=== PATIENT | male | born 2000 | race Caucasian/White ===

== ENCOUNTER 2018-12-03 21:56 | Emergency (ER) | payer MEDICAID, OTHER ==
--- NOTE | 2018-12-03 22:15 | ER Document Report ---
ED Neck/Back Problem - General Chief Complaint: Low Back Pain Stated Complaint: BACK PAIN Time Seen by Provider: 12/03/18 22:14 Primary Care Provider: FLY MEJIA PA [[employer]] - Follow up as needed Mode of Arrival: Stretcher Information source: Patient Notes: HISTORY OF PRESENT ILLNESS: Patient is a 18-year-old male with a past medical history of recent L5/S1 discectomy on September 21, 2018 (Dr. Tono Em at [facility]) who presents with acute onset back pain earlier yesterday. Patient reports that he stepped off a curb and as soon as he did he felt immediate pain, has been able to "crawl" to the bathroom and reports having normal urination and bowel movements today. Onset: 1 day ago Provocation: "Stepped off a curb," worse with bending or twisting Quality: Sharp "like lightning" Radiation: Down the left leg to the posterior calf Severity: "Severe" Timing: Constant REVIEW OF SYSTEMS: CONSTITUTIONAL : Denies fever or chills, no sweats. Denies recent illness. EENT: Denies eye, ear, throat, or mouth pain or symptoms. Denies nasal or sinus congestion. CARDIOVASCULAR: Denies chest pain. RESPIRATORY: Denies cough, cold, or chest congestion. Denies shortness of breath, difficulty breathing, or wheezing. GASTROINTESTINAL: Denies abdominal pain. Denies nausea, vomiting, or diarrhea. Denies constipation. GENITOURINARY: Denies difficulty urinating, painful urination, burning, frequency, or blood in urine. MUSCULOSKELETAL: Positive back pain, no joint pain or swelling. SKIN: Denies rash or skin lesions. HEMATOLOGIC : Denies easy bruising or bleeding. LYMPHATIC: Denies swollen, enlarged glands. NEUROLOGICAL: Denies altered mental status or loss of consciousness. Denies headache. Denies weakness or paralysis or loss of use of either side. Denies problems with gait or speech. Denies sensory or motor loss. PSYCHIATRIC: Denies anxiety or stress or depression. All other systems reviewed and negative. PHYSICAL EXAMINATION: GENERAL: Well-appearing, well-nourished and in mild acute distress due to pain. HEAD: Atraumatic, normocephalic. No scalp deformity, depression, or crepitance. EYES: Pupils are 3 mm and equal/round/reactive to light, extraocular movements intact, sclera anicteric, conjunctiva are normal. ENT: Nares patent bilaterally, oropharynx clear without exudates or palatal petechia. Moist mucous membranes. No tonsil hypertrophy. NECK: Normal range of motion, supple without lymphadenopathy. LUNGS: Breath sounds present, equal, and clear to auscultation bilaterally. No wheezes, rales, or rhonchi. HEART: Regular rate and rhythm without murmurs, rubs, or gallops. 2+ peripheral pulses. Normal capillary refill. ABDOMEN: Soft, nontender, nondistended. Normoactive bowel sounds. No guarding, no rebound. No masses appreciated. BACK: No step-off or deformity. Surgical incision scar in the lower lumbar spine that is nontender. EXTREMITIES: Normal range of motion, no pitting or edema. No cyanosis. NEUROLOGICAL: No focal neurological deficits. Moves all extremities spontaneously and on command. PSYCH: Normal mood, normal affect. No suicidal thoughts/ideations. No homocidal thoughts/ideations. No hallucinations. SKIN: Warm, dry, normal turgor, no rashes or lesions noted. ASSESSMENT AND PLAN: This patient is a 18-year-old male who presents with acute onset lower back pain after stepping off a curb in the setting of being 2 weeks status post L5/S1 discectomy. Concern for acute traumatic sciatica versus nerve impingement versus postoperative adhesions. 1. Will obtain CT scan of the lumbar spine. 2. Will give IV morphine for pain control and reassess. 3. If CT scan shows acute nerve impingement, patient will likely necessitate transferring back to [facility]. TRAVEL OUTSIDE OF THE [place] IN LAST 30 DAYS: No - HPI Similar symptoms previously: No Recently seen / treated by doctor: No Past Medical History - General Information source: Patient - Social History Smoking Status: Never Smoker Chew tobacco use (# tins/day): No Frequency of alcohol use: None Drug Abuse: None Lives with: Friend Family History: Reviewed & Not Pertinent Patient has suicidal ideation: No Patient has homicidal ideation: No - Past Medical History Cardiac Medical History: Reports: None Pulmonary Medical History: Reports: None EENT Medical History: Reports: None Neurological Medical History: Reports: None Endocrine Medical History: Reports: None Renal/ Medical History: Reports: None Malignancy Medical History: Reports None GI Medical History: Reports: None Musculoskeletal Medical History: Reports None Skin Medical History: Reports None Psychiatric Medical History: Reports: None Traumatic Medical History: Reports: None Infectious Medical History: Reports: None Past Surgical History: Reports: Other - History of spinal surgery - Immunizations Immunizations up to date: Yes Hx Diphtheria, Pertussis, Tetanus Vaccination: Yes Physical Exam - Vital signs Vitals: Temp Pulse Resp BP Pulse Ox 98.4 F 98 20 120/57 L 99 12/03/18 21:56 12/03/18 21:56 12/03/18 21:56 12/03/18 21:56 12/03/18 21:56 Course - Re-evaluation Re-evalutation: 12/04/18 00:33 CT scan is negative for acute thoracic or lumbar injuries. Patient has been a ble to move around in the bed including moving his legs back and forward without difficulties. He will be discharged home with return precautions and follow-up with his surgeon as already scheduled. Patient voices understanding and agreeing with the plan. - Vital Signs Vital signs: Temp Pulse Resp BP Pulse Ox 98.4 F 98 20 120/57 L 99 12/03/18 21:56 12/03/18 21:56 12/03/18 21:56 12/03/18 21:56 12/03/18 21:56 Discharge - Discharge Clinical Impression: Acute back pain Qualifiers: Back pain location: low back pain Back pain laterality: midline Sciatica presence: with sciatica Sciatica laterality: sciatica of left side Qualified Code(s): M54.42 - Lumbago with sciatica, left side Condition: Good Disposition: HOME, SELF-CARE Instructions: Low Back Pain ([facility]), Sciatica ([facility]) Additional Instructions: You have been evaluated in the Emergency Department for back pain and sciatica. Please follow-up with your primary physician as well as your surgeon as instructed in 1-2 weeks. Return to the Emergency Department if you experience numbness of your legs, the inability to urinate or have a bowel movement, the inability to walk, or any other concerning symptoms. Prescriptions: Diclofenac Sodium 75 mg PO BID #30 tablet. Tramadol HCl [Ultram 50 mg Tablet] 50 mg PO Q6H PRN #30 tab PRN Reason: Referrals: FLY MEJIA PA [[employer]YSIC[employer]] - Follow up as needed Print Language: Thai
[2018-12-03] MEDS ORDERED: MORPHINE SULFATE 10 MG/ML INJ IV ONE (22:27)
--- NOTE | 2018-12-03 23:34 | RADIOLOGY REPORT (SQ) ---
EXAM DESCRIPTION: CT LUMBAR SPINE WITHOUT IV CONTRAST COMPLETED DATE/TME: 12/03/2018 22:27 CLINICAL HISTORY: 18 years, Male, Back pain COMPARISON: EXAM DESCRIPTION: CLINICAL HISTORY: Back pain COMPARISON: None Available. TECHNIQUE: Contiguous axial images of lumbar spine were obtained followed by reconstruction images. All CT scanners at this facility use dose modulation, iterative reconstruction, and/or weight based dosing when appropriate to reduce radiation dose to as low as reasonably achievable (ALARA). FINDINGS: There is a left L5 pars defect. No spondylolisthesis or other spondylolysis. There is mild straightening of the normal lumbar lordosis. There is otherwise anatomic alignment of the lumbar spine. Vertebral body height is preserved without evidence of acute fracture. IMPRESSION: L5 spondylolysis. No acute abnormalities.
[2018-12-04 01:49] VITALS: BP 133/93
== END 2018-12-04 01:49 | disposition home or self-care (01) ==
LOC: ER 21:56
DX: M54.42 Lumbago with sciatica, left side (principal); Z98.890 Other specified postprocedural states
CPT/HCPCS: 99284; 96374; 72131; J2270

== ENCOUNTER → 2019-01-17 | Outpatient (CLI) | payer MEDICAID ==
--- NOTE | 2019-01-17 14:01 | RADIOLOGY REPORT (SQ) ---
EXAM DESCRIPTION: L SPINE W/FLEX/EXT COMPLETED DATE/TIME: 01/17/2019 11:56 am REASON FOR STUDY: LUMBAR RADICULOPATHY (M54.16) M54.16 RADICULOPATHY, LUMBAR REGION COMPARISON: None. NUMBER OF VIEWS: 7 views TECHNIQUE: AP, lateral, coned-down lateral, and oblique views of the lumbar spine were obtained. Th e lateral views were done in neutral, flexion, and extension. LIMITATIONS: None. FINDINGS: MINERALIZATION: Normal. SEGMENTATION: Normal. No transitional anatomy. ALIGNMENT: Normal. FLEXION/EXTENSION: No instability. VERTEBRAE: Maintained height. No fracture or worrisome bone lesion. DISCS: Preserved height. No significant osteophytes or end plate irregularity. POSTERIOR ELEMENTS: Pedicles and facets are intact. No pars defect or posterior arch defects. HARDWARE: None in the spine. OTHER: No other significant finding. IMPRESSION: NO SIGNIFICANT FINDING IN THE SPINE. NO INSTABILITY ON FLEXION/EXTENSION. TECHNICAL DOCUMENTATION: JOB ID: [id number] [employer]- All Rights Reserved Reading location - IP/workstation name: [email or web address]
== END ==
LOC: RAD 10:57
PROVIDERS: ATTEND Specialist
DX: M54.16 Radiculopathy, lumbar region (principal)
CPT/HCPCS: 72114